=== PATIENT | female | born 1955 | race African-American/Black ===

== ENCOUNTER 2017-02-01 21:57 | Inpatient (IN) | payer MEDICAID ==
[~2017-02-01] VITALS: Ht 165.1 cm; Wt 59.4 kg
--- NOTE | 2017-02-01 21:57 | NUR ---
Patient BIBA to bed 5 at this time.
[2017-02-01] MEDS ORDERED: NACL 0.9% 1,000 ML IV ONE (22:05)
[2017-02-01 22:15] VITALS: BP 101/72
--- NOTE | 2017-02-01 22:25 | NUR ---
62Y F BIBA FOR SATS IN LOW 50'S AT HOSPICE. ACCU CK IN FIELD 129, PT PLACED ON NON-REBREATHER SATS 98%. PT IS ON HOSPICE CARE AND ON O2 AT HOME. PT IS AAOX2. BREATHING IS UNLABORED AND CLEAR. PT DENIES ANY PAIN AT THE MOMENT.
[2017-02-01 22:52] LABS: BASOPHILS # (AUTO) 0.1 K/uL (0.00-0.22); BASOPHILS % (AUTO) 0.9 % (0.0-2.0); EOSINOPHILS # (AUTO) 0.2 K/uL (0-0.4); EOSINOPHILS % (AUTO) 1.8 % (0.0-4.0); HEMATOCRIT 44.3 % (36-48); HEMOGLOBIN 13.2 g/dL (12.0-16.0); LYMPHOCYTES # (AUTO) 0.4 K/uL (2.5-16.5); MEAN CORPUSCULAR HEMOGLOBIN 28 pg (27-31); MEAN CORPUSCULAR HGB CONC 30 g/dL (33-37); MEAN CORPUSCULAR VOLUME 95 fL (80-94); MONOCYTES # (AUTO) 0.1 K/uL (0.8-1.0); MONOCYTES % (AUTO) 0.9 % (1.7-9.3); NEUTROPHILS # (AUTO) 9.5 K/uL (1.8-7.7); NEUTROPHILS % (AUTO) 92.3 % (42.2-75.2); PLATELET COUNT (AUTO) 208 K/uL (140-450); RED BLOOD CELL COUNT(AUTO) 4.66 MIL/uL (4.20-5.40); RED CELL DISTRIBUTION WIDTH 16.6 % (11.6-13.7); WHITE BLOOD COUNT (AUTO) 10.3 K/uL (4.8-10.8)
[2017-02-01] MEDS ORDERED: PIPERACILLIN/TAZOBACTAM 3.375 GM in DEXTROSE 5% 50 ML IV ONE (23:05)
[2017-02-01 23:07] LABS: APPEARANCE,URINE CLEAR (CLEAR); BILIRUBIN,URINE NEGATIVE (NEGATIVE); BLOOD, URINE NEGATIVE (NEGATIVE); COLOR,URINE YELLOW (YELLOW); LEUKOCYTE ESTERASE ,URINE NEGATIVE (NEGATIVE); NITRITE, URINE NEGATIVE (NEGATIVE); PROTEIN,URINE TRACE (NEGATIVE); UGLUCOSE NEGATIVE (NEGATIVE); UROBILINOGEN,URINE 0.2 EU/dL (0.2 - 1)
[2017-02-01 23:09] LABS: LYMPHOCYTES % (AUTO) 4.1 % (20.5-51.1)
[2017-02-01 23:13] LABS: ANION GAP 12.2 (8-16); CARBON DIOXIDE 30.5 mmol/L (21-32); POTASSIUM 4.7 mmol/L (3.5-5.1)
[2017-02-01 23:14] LABS: CALCIUM 8.4 mg/dL (8.5-10.1); CREATININE 3.4 mg/dL (0.6-1.3)
[2017-02-01 23:20] LABS: LACTIC ACID 1.2 mmol/L (0.4-2.0)
[2017-02-01 23:23] LABS: INR 1.1 (0.8-1.2); PARTIAL THROMBOPLASTIN TIME 21.8 secs (22-35.6); PROTHROMBIN TIME 11.6 secs (10.8-13.4)
[2017-02-01 23:24] LABS: ALBUMIN 2.8 g/dL (3.4-5.0); TOTAL BILIRUBIN 0.9 mg/dL (0.0-1.0)
[2017-02-01 23:33] LABS: BACTERIA,URINE FEW /HPF (None Seen); RBC,URINE 0-5 (RARE) /HPF (0-5); WBC,URINE 0-5 (RARE) /HPF (0-5)
[2017-02-01 23:34] LABS: HYALINE CASTS, URINE 0-3 /LPF (None Seen); MUCUS,URINE 2+ /LPF (None Seen)
[2017-02-01] MEDS ORDERED: PIPERACILLIN/TAZOBACTAM 3.375 GM VIAL IV ONE (23:39)
[2017-02-01] MEDS: NACL 0.9% 1,000 ML IV SCH (23:49)
[2017-02-01] MEDS ORDERED: MORPHINE SULFATE 4 MG/ML SYR IVP PRN (23:50)
[2017-02-01] MEDS ORDERED: ONDANSETRON 4 MG/2 ML VIAL IVP PRN (23:50)
[2017-02-01] MEDS ORDERED: DOCUSATE SODIUM 100 MG GELCAP PO PRN (23:50)
[2017-02-01] MEDS ORDERED: MORPHINE SULFATE 2 MG/ML SYR IVP PRN (23:50)
[2017-02-01] MEDS ORDERED: ACETAMINOPHEN 325 MG TAB PO PRN (23:50)
[2017-02-02] MEDS ORDERED: PIPERACILLIN/TAZOBACTAM 2.25 GM in DEXTROSE 5% 50 ML IV ONE (00:25)
--- NOTE | 2017-02-02 00:47 | NUR ---
Patient will be admitted to care of DR GOODMAN. Admited tO TELE 106A. Will go to room 106A. Belongings list completed. Report to JALEEL JACK .
[2017-02-02] MEDS ORDERED: ALBUTEROL SULFATE/IPRATROPIU 3 ML SOL IH PRN (01:00)
[2017-02-02 01:24] LABS: AMPHETAMINE, URINE NEGATIVE ng/ml (NEG <=1000); BARBITURATE, URINE NEGATIVE ng/ml (NEG <=200); BENZODIAZEPINE, URINE POSITIVE ng/mL (NEG <=200); CANNABINOID, URINE NEGATIVE ng/mL (NEG <=50); COCAINE, URINE POSITIVE ng/mL (NEG <=300); OPIATE, URINE NEGATIVE ng/mL (NEG <=2000); PHENCYCLIDINE SCREEN,URINE NEGATIVE ng/mL (NEG <=25)
[2017-02-02 01:28] LABS: BLOOD GAS HCO3 23.3 mmol/L; BLOOD GAS O2 SAT% 88.8 % (92.0-98.5); BLOOD GAS PCO2 63.9 mmHg (20-50); BLOOD GAS PO2 63.8 mmHg
[2017-02-02 01:30] VITALS: BP 92/59
[2017-02-02 01:30] LABS: CHOL/HDL RATIO 1.6 (1-4.5); MAGNESIUM 1.8 mg/dL (1.8-2.4); PHOSPHORUS 6.2 mg/dL (2.5-4.9)
--- NOTE | 2017-02-02 01:30 | NUR ---
PT ADMITTED TO UNIT FROM ED, PATIENT ABLE TO AMBULATE FROM GURNEY TO BED WITH STEADY GAIT, PT AAOX2 CONFUSED, ON O2 4L NC, PULSE OX NOT READING D/T PTS FINGERS COLD. PTS RESPIRATIONS FREQUENT WITH ACCESSORY MUSCLE USE. SKIN INTACT WITH BULGE NOTED ON PTS ABDOMEN. PT DENIES PAIN AT THIS TIME, ORIENTED PATIENT TO ROOM AND SURROUNDINGS, DISCUSSED PLAN OF CARE WITH PATIENT, PT VERBALIZED UNDERSTANDING, REINFORCEMENT NEEDED, CALL LIGHT WITHIN REACH. WILL CONTINUE TO MONITOR.
--- NOTE | 2017-02-02 01:30 | NUR ---
ABG DONE WITH NO INCIDENT. RESULTS GIVEN VERBALLY TO DR VAZQUEZ. GAVE PT SPUTUM CUB AND EXPLAINED TO PT. PT VERBALIZED UNDERSTANDING. IS DONE. WILL FOLLOW WITH ORDERS.
[2017-02-02 01:31] LABS: FREE T4 (FREE THYROXINE) 1.03 ng/dL (0.76-1.46); THYROID STIMULATING HORMONE 1.07 uIU/mL (0.34-3.74)
--- NOTE | 2017-02-02 01:35 | NUR ---
DR VAZQUEZ AT BEDSIDE
--- NOTE | 2017-02-02 01:50 | NUR ---
PLACED PT ON BIPAP PER DR ORDERS. SETTINGS 10/5,12,100%. MASK SIZE IS SMALL. SKIN IS INTACT. APPLIED FACE MASK GEL FOR SKIN PROTECTION. BIPAP IS PLUGGED INTO RED OUTLET, ALARMS ARE WORKING AND AUDIBLE. PT IS AWAKE AND ALERT WITH CLEAR AND DIMINISHED BS. GUERO MEYER AT BEDSIDE. WILL CONTINUE TO MONITOR.
[2017-02-02] MEDS ORDERED: PIPERACILLIN/TAZOBACTAM 2.25 GM VIAL IV ONE (01:51)
--- NOTE | 2017-02-02 03:47 | NUR ---
PT GOT AGITATED FOR A MOMENT AND PULLED OFF BIPAP MASK AND THREW IT ON THE GROUND. PT STATING, "I DONT WANT TO WEAR THAT THING AND YOU CANT MAKE ME" EXPLAINED TO THE PT THE IMPORTANCE OF HAVING IT ON PT STATED SHE DID NOT WANT IT, PT STATED " YOU CAN TELL THE DOCTORS I DONT WANT TO WEAR IT". PT WAS PUT ON NASAL CANNULA 4L O2 SATS FLUCTUATING BETWEEN 80-91, SPOKE WITH MD WOLFE AND DR VAZQUEZ. CAME TO TALK TO PATIENT AND EXPLAINED AGAIN THE IMPORTANCE OF HAVING IT ON AND IF SHE DIDNT THE ALTERNATIVE MEASURES THAT WOULD HAVE TO BE TAKEN. PT AGREED TO HAVE IT ON, REAPPLIED THE BIPAP, O2 SATS AT 91%, PT RESTING IN BED, CALL LIGHT WITHIN REACH. WILL CONTINUE TO MONITOR.
[2017-02-02 04:00] VITALS: BP 92/63
--- NOTE | 2017-02-02 04:35 | NUR ---
PT RESTING IN BED, NO SOB OR SIGN OF DISTRESS, CALL LIGHT WITHIN REACH. WILL CONTINUE TO MONITOR.
[2017-02-02] MEDS: LORazepam 1 MG TAB PO SCH ×3 (05:00→20:46)
--- NOTE | 2017-02-02 05:40 | NUR ---
ABG was done and results were read to Dr. Gagnon and the only change was to reduce fio2 from 100% to %60. Patient spo2 99 heart rate 88 patient stable no resp distress
[2017-02-02 05:52] LABS: BLOOD GAS HCO3 22.7 mmol/L; BLOOD GAS PCO2 72.7 mmHg (20-50); BLOOD GAS PH 7.112 (7.35-7.45); BLOOD GAS PO2 221.6 mmHg
[2017-02-02 05:53] LABS: BLOOD GAS BASE EXCESS -7.8 mmol/L (-2.0-2.0)
[2017-02-02 05:54] LABS: BLOOD GAS O2 SAT% 99.5 % (92.0-98.5)
--- NOTE | 2017-02-02 06:23 | NUR ---
PT WANTING TO REMOVE BIPAP EXPLAINED TO PATIENT THE NEED AND IMPORTANCE OF IT. PT STATED " ILL TAKE MY CHANCES" PT THEN WANTED TO EAT JELLO, REMOVED BIPAP, APPLIED NC AT 4L, O2 SATS AT 92%, WILL CONTINUE TO MONITOR.
--- NOTE | 2017-02-02 06:32 | NUR ---
PT REFUSING TO PUT BIPAP BACK ON, EDUCATED PATIENT ON IMPORTANCE, PT STATED " NO I DONT LIKE THAT THING, I DONT WANT IT ON" O2 SATS ON 4L NC AT 92%, WILL CONTINUE TO MONITOR
--- NOTE | 2017-02-02 07:10 | NUR ---
PER JALEEL/RN NOCS PATIENT REFUSING TO USE BIPAP TO MASK PATIENT REMOVED X2 DR. VAZQUEZ AND DR. WOLFE AWARE MD'S SPOKE TO PATIENT AND EXPLAINED BENEFITS OF USE WITH POSSIBILITY OF INTUBATION PATIENT ON SUPPLEMENTAL OXYGEN AI 4 LPM VIA NC SATURATION 95%
[2017-02-02 07:11] LABS: ANION GAP 12.9 (8-16); CALCIUM 7.3 mg/dL (8.5-10.1); CARBON DIOXIDE 26.3 mmol/L (21-32); POTASSIUM 4.2 mmol/L (3.5-5.1)
[2017-02-02 07:15] LABS: MAGNESIUM 1.6 mg/dL (1.8-2.4)
--- NOTE | 2017-02-02 07:27 | NUR ---
RECEIVED REPORT FROM NIGHT NURSE, PT OS AAOX2/3, PT ON O2 4L VIA NC, IV TO LEFT FA 20 G INFUSING WELL, SKIN INTACT, INITIAL ASSESSMENT COMPLETED, REVIEWED PLAN OF CARE WITH PT, REINFORCEMENT NEEDED, ALL SAFETY PRECAUTIONS MET. CALL LIGHT WITHIN REACH. WILL CONTINUE TO MONITOR.
--- NOTE | 2017-02-02 07:27 | NUR ---
ENDORSED PATIENT TO DAY RN AT BEDSIDE, PATIENT IN STABLE CONDITION
[2017-02-02 08:00] VITALS: BP 90/57
[2017-02-02] MEDS: NACL 0.9% 1,000 ML IV SCH ×2 (08:02→17:09)
[2017-02-02] MEDS: CALCIUM ACETATE 667 MG TAB PO SCH (08:30)
[2017-02-02] MEDS: LACTOBACILLUS RHAMNOSUS GG 1 EACH CAP PO SCH (08:30)
--- NOTE | 2017-02-02 08:35 | NUR ---
DUE MEDICATIONS GIVEN, PT TOLERATED WELL. PT CURRENTLY ON O2 4L VIA NC PULSE OX 92%. ALL NEEDS MET. WILL CONTINUE TO MONITOR.
[2017-02-02] MEDS ORDERED: FOLIC ACID 1 MG TAB PO SCH (09:00)
[2017-02-02] MEDS ORDERED: THIAMINE 100 MG TAB PO SCH (09:00)
[2017-02-02] MEDS ORDERED: MULTIVITAMIN 1 TAB PO SCH (09:00)
[2017-02-02] MEDS ORDERED: CLINICAL MONITORING MC PRN (09:50)
--- NOTE | 2017-02-02 09:53 | NUR ---
PATIENT HAS BEEN SCREENED AND CATEGORIZED MODERATE NUTRITION RISK. PATIENT WILL BE SEEN WITHIN 3-5 DAYS OF ADMISSION. 02/04/17-02/06/[address] Addendum: 02/02/17 at [address] ERROR, PLEASE DISREGARD
--- NOTE | 2017-02-02 10:18 | NUR ---
PATIENT HAS BEEN SCREENED AND CATEGORIZED HIGH NUTRITION RISK. PATIENT WILL BE SEEN WITHIN 1-2 DAYS OF ADMISSION. 02/02/17-02/03/[address]
--- NOTE | 2017-02-02 11:25 | NUR ---
PT CURRENTLY SLEEPING, NO S/S OF RESPIRATORY DISTRESS NOTED, PT ON O2 4L VIA NC. CALL LIGHT WITHIN REACH. WILL CONTINUE TO MONITOR.
[2017-02-02] MEDS ORDERED: TEMA15CA11 PO (11:32)
[2017-02-02] MEDS ORDERED: [UNRECOGNIZED DRUG - CODE] PO (11:32)
[2017-02-02] MEDS ORDERED: AMLO-27 PO (11:32)
[2017-02-02] MEDS ORDERED: DOCU-67 PO (11:32)
[2017-02-02] MEDS ORDERED: FURO20TA8 PO (11:32)
[2017-02-02] MEDS ORDERED: LEVO500T22 PO (11:32)
[2017-02-02] MEDS ORDERED: LORA-476 PO (11:32)
[2017-02-02] MEDS ORDERED: ASPI81CT80 PO (11:32)
[2017-02-02] MEDS ORDERED: CARV25TA PO (11:32)
[2017-02-02] MEDS ORDERED: ATOR40TA PO (11:32)
[2017-02-02] MEDS ORDERED: ACET-9494 PO (11:32)
[2017-02-02] MEDS ORDERED: IPRA3AMP IH (11:32)
[2017-02-02] MEDS ORDERED: TEMAZEPAM 15 MG CAP PO PRN (11:35)
[2017-02-02] MEDS: FUROSEMIDE 20 MG/2 ML VIAL IVP SCH (11:35)
[2017-02-02 12:00] VITALS: BP 96/70
[2017-02-02] MEDS ORDERED: amLODIPine 5 MG TAB PO SCH (12:00)
[2017-02-02] MEDS ORDERED: ASPIRIN 81 MG TAB.CHEW PO SCH (12:00)
[2017-02-02] MEDS ORDERED: VIT-B COMP/VIT-C/FOLIC ACID 1 TAB PO SCH (12:00)
--- NOTE | 2017-02-02 12:17 | NUR ---
ENDORSED PLAN OF CARE TO ALEXX JACK
--- NOTE | 2017-02-02 12:17 | NUR ---
02/02/17 RD INITIAL ASSESSMENT COMPLETED PLEASE REFER TO NUTRITION ASSESSMENT UNDER CARE ACTIVITY FOR ESTIMATED NUTRITIONAL NEEDS. 1. RECOMMEND SWITCH FROM 2GM SODIUM DIET TO RENAL 60 G PROTEIN DIET 2. CONSIDER NEPHROVITE 3. D/C MVI, THIAMINE, AND FOLIC ACID SUPPLEMENT 4. RD TO FOLLOW-UP 2-3 DAYS; HIGH RISK JAROCHO SHAIKH, RD
[2017-02-02] MEDS ORDERED: MAG SULF 2000 MG/WATER PREMIX 50 ML IV SCH (12:30)
[2017-02-02] MEDS ORDERED: CALCIUM ACETATE 667 MG TAB PO SCH (12:30)
[2017-02-02] MEDS: PIPER/TAZO 2.25GM/D5W PREMIX 50 ML IV SCH ×2 (12:48→20:45)
[2017-02-02] MEDS ORDERED: LORazepam 1 MG TAB PO SCH (13:00)
[2017-02-02] MEDS: ALBUTEROL SULFATE/IPRATROPIU 3 ML SOL IH SCH ×2 (13:45→19:35)
--- NOTE | 2017-02-02 13:45 | NUR ---
AWAKE AND ALERT RESPONSIVE TO DIORAMIST VERBAL COMMANDS SUPPLEMENTAL OXYGEN USE AT 4 LPM VIA NC SATURATION 97% POST HHN THERAPY TITRATED FIO2 TO 3 LPM DIORAMIST TO MONITOR ALEXX/RN NOTIFIED BIPAP VISION REMAINS AT BEDSIDE
[2017-02-02 16:00] VITALS: BP 93/65
--- NOTE | 2017-02-02 16:38 | NUR ---
REVIEWED [facility] SAMPLE REPORT WITH DR. OSCAR KERN (RES) NEW ORDERS: INCREASE FIO2 TO 4LPM (36%) VIA NC Addendum: 02/02/17 at 1711 by Fred Castillo RT SELINA NOTIFIED OF FIO2 INCREASE TO 4 LPM (36%) VIA NC
[2017-02-02 16:39] LABS: BLOOD GAS PH 7.224 (7.35-7.45)
[2017-02-02 16:40] LABS: BLOOD GAS BASE EXCESS -2.7 mmol/L (-2.0-2.0); BLOOD GAS HCO3 25.9 mmol/L; BLOOD GAS O2 SAT% 92.4 % (92.0-98.5); BLOOD GAS PCO2 64.1 mmHg (20-50); BLOOD GAS PO2 72.1 mmHg
--- NOTE | 2017-02-02 19:13 | NUR ---
PATIENT REPORT GIVEN AT BEDSIDE. PATIENT ENDORSED IN STABLE CONDITION
--- NOTE | 2017-02-02 19:30 | NUR ---
RECEIVED REPORT FROM DAY RN AT BEDSIDE, PATIENT IS AAOX2 ON O2 2L NC, NO SOB OR SIGN OF DISTRESS AT THIS TIME, IV TO LEFT FA PATENT AND INTACT, SKIN INTACT WITH BULDGE NOTED ON PATIENT'S ABDOMEN, PT STATES IS A HERNIA SHE HAS HAD. PT DENIES PAIN AT THIS TIME, DISCUSSED PLAN OF CARE WITH PATIENT, PT VERBALIZED UNDERSTANDING, CALL LIGHT WITHIN REACH. WILL CONTINUE TO MONITOR
--- NOTE | 2017-02-02 19:46 | NUR ---
PATIENT DOES NOT WANT BIPAP, NO SIGNS OF RESP. DISTRESS NOTED,RR 18, HR 63, SAO2 97% ON 4LPM VIA NC, BS-COURSE AND DIMINISHED ON RUL. HHN TX GIVEN ORDERED
[2017-02-02 20:00] VITALS: BP 101/64
[2017-02-02] MEDS: ATORVASTATIN 20 MG TAB PO SCH (20:45)
[2017-02-02] MEDS: CARVEDILOL 12.5 MG TAB PO SCH (20:46)
--- NOTE | 2017-02-02 20:50 | NUR ---
PM MEDS ADMINISTERED, PT TOLERATED WELL, PT RESTING IN BED, ON 4L O2 NC, O2 SATS 95%, WILL CONTINUE TO MONITOR
--- NOTE | 2017-02-02 21:10 | NUR ---
RADIOLOGY CALLED REGARDING ORDER FOR ABDOMINAL US, PT HAS NOT BEEN NPO, PER RADIOLOGY KEEP PT NPO FOR REST OF THE NIGHT AND US WILL BE DONE AT 0630 ON 02/03/17.
[2017-02-03] VITALS: BP 103/75
[2017-02-03] MEDS: ALBUTEROL SULFATE/IPRATROPIU 3 ML SOL IH SCH ×4 (00:11→19:03)
--- NOTE | 2017-02-03 00:20 | NUR ---
VITAL SIGNS STABLE NO SOB OR SIGN OF DISTRESS, CALL LIGHT WITHIN REACH. WILL CONTINUE TO MONITOR.
--- NOTE | 2017-02-03 02:00 | NUR ---
PT SLEEPING, NO SOB OR SIGN OF DISTRESS AT THIS TIME, PT ON O2 4L NC, WILL CONTINUE TO MONITOR
[2017-02-03] MEDS: NACL 0.9% 1,000 ML IV SCH ×2 (03:09→22:12)
[2017-02-03 04:00] VITALS: BP 106/59
--- NOTE | 2017-02-03 04:10 | NUR ---
VITAL SIGNS STABLE, NO SOB OR SIGN OF DISTRESS, CALL LIGHT WITHIN REACH. WILL CONTINUE TO MONITOR.
[2017-02-03] MEDS: PIPER/TAZO 2.25GM/D5W PREMIX 50 ML IV SCH ×3 (04:39→20:56)
[2017-02-03] MEDS: LORazepam 1 MG TAB PO SCH ×3 (05:49→20:56)
--- NOTE | 2017-02-03 06:27 | NUR ---
PT REFUSED CHEST XRAY
[2017-02-03 06:28] LABS: BASOPHILS # (AUTO) 0.3 K/uL (0.00-0.22); BASOPHILS % (AUTO) 3.5 % (0.0-2.0); EOSINOPHILS # (AUTO) 0.3 K/uL (0-0.4); EOSINOPHILS % (AUTO) 3.5 % (0.0-4.0); HEMATOCRIT 37.1 % (36-48); HEMOGLOBIN 11.4 g/dL (12.0-16.0); LYMPHOCYTES # (AUTO) 1.6 K/uL (2.5-16.5); LYMPHOCYTES % (AUTO) 20.1 % (20.5-51.1); MEAN CORPUSCULAR HEMOGLOBIN 29 pg (27-31); MEAN CORPUSCULAR HGB CONC 31 g/dL (33-37); MEAN CORPUSCULAR VOLUME 94 fL (80-94); MONOCYTES # (AUTO) 0.3 K/uL (0.8-1.0); MONOCYTES % (AUTO) 3.8 % (1.7-9.3); NEUTROPHILS # (AUTO) 5.4 K/uL (1.8-7.7); NEUTROPHILS % (AUTO) 69.1 % (42.2-75.2); PLATELET COUNT (AUTO) 147 K/uL (140-450); RED BLOOD CELL COUNT(AUTO) 3.94 MIL/uL (4.20-5.40); RED CELL DISTRIBUTION WIDTH 15.8 % (11.6-13.7); WHITE BLOOD COUNT (AUTO) 7.9 K/uL (4.8-10.8)
[2017-02-03 06:32] LABS: ANION GAP 10.9 (8-16); CALCIUM 7.4 mg/dL (8.5-10.1); CARBON DIOXIDE 28.3 mmol/L (21-32); CREATININE 3.5 mg/dL (0.6-1.3); POTASSIUM 4.2 mmol/L (3.5-5.1)
[2017-02-03 06:43] LABS: MAGNESIUM 2.2 mg/dL (1.8-2.4); PHOSPHORUS 3.9 mg/dL (2.5-4.9)
--- NOTE | 2017-02-03 07:03 | NUR ---
HHN TX GIVEN. PT DOESN'T WANT BIPAP. SPO2 ON 3 L NC IS 99%. NO SOB OR DISTRESS NOTED. WILL CONTINUE TO MONITOR.
--- NOTE | 2017-02-03 07:30 | NUR ---
ENDORSED PATIENT TO DAY RN AT BEDSIDE, PATIENT IN STABLE CONDITION
--- NOTE | 2017-02-03 07:32 | NUR ---
RECEIVED PATIENT REPORT AT BEDSIDE FROM NIGHT NURSE. PATIENT IS AAOX3 AND SHOWS NO S/S OF DISTRESS ON O2 4LPM VIA NASAL CANNULA. NOTED ABD BULGE THAT PATIENT STATES "IT'S A HERNIA". PATIENT IS NPO EXCEPT MEDS FOR ULTRASOUND OF THE ABD. PATIENT IS AWARE. SKIN IS INTACT OTHERWISE. IV NOTED ON THE L FA WITH IVF'S INFUSING WELL. ON TELE MONITOR. PATIENT DENIES PAIN. PATIENT AWARE OF POC FOR TODAY; HOWEVER, SHE NEEDS REINFORCEMENT. BSC AT BEDSIDE. CALL LIGHT WITHIN REACH AND BED IS LOWERED. WILL CONTINUE TO MONITOR.
[2017-02-03 08:00] VITALS: BP 116/73
--- NOTE | 2017-02-03 08:15 | NUR ---
PATIENT BEING SEEN BY CONCRETE HOPPER OPERATOR.
[2017-02-03] MEDS: CALCIUM ACETATE 667 MG TAB PO SCH (08:34)
[2017-02-03] MEDS: ASPIRIN 81 MG TAB.CHEW PO SCH (08:34)
[2017-02-03] MEDS: VIT-B COMP/VIT-C/FOLIC ACID 1 TAB PO SCH (08:34)
[2017-02-03] MEDS: FUROSEMIDE 20 MG/2 ML VIAL IVP SCH (08:34)
[2017-02-03] MEDS: LACTOBACILLUS RHAMNOSUS GG 1 EACH CAP PO SCH (08:34)
[2017-02-03] MEDS: CARVEDILOL 12.5 MG TAB PO SCH ×2 (08:35→20:56)
--- NOTE | 2017-02-03 08:35 | NUR ---
ADMINISTERED SCHEDULED MEDICATIONS. PATIENT DENIES PAIN. THE BED IS LOWERED WITH CALL LIGHT WITHIN REACH. ALL NEEDS MET.
--- NOTE | 2017-02-03 08:40 | NUR ---
PATIENT BEING SEEN BY XRAY.
[2017-02-03] MEDS: amLODIPine 5 MG TAB PO SCH (09:00)
--- NOTE | 2017-02-03 10:30 | NUR ---
PATIENT IS RESTING IN BED AND SHOWS NO S/S OF DISTRESS ON O2 4LPM VIA NASAL CANNULA. THE BED IS LOWERED WITH CALL LIGHT WITHIN REACH.
--- NOTE | 2017-02-03 10:33 | NUR ---
SS NOTE: I SPOKE WITH PT'S SON, NEFTALI AND HE CONFIRMED THAT PT LIVES AT HOME WITH HIM BUT HE IS HAVING DIFFICULTY CARING FOR PT AT HOME. HE ALSO STATED THAT HE WOULD LIKE PT TO GO TO SNF FOR HOSPICE SERVICES.
--- NOTE | 2017-02-03 11:00 | NUR ---
PATIENT ASSISTED TO BSC. PATIENT VOIDED AND HAD A MODERATE SOFT LIGHT BROWN BM.
[2017-02-03 12:00] VITALS: BP 96/57
--- NOTE | 2017-02-03 12:10 | NUR ---
PATIENT IS SLEEPING AND SHOWS NO S/S OF DISTRESS ON O2 4LPM VIA NASAL CANNULA
--- NOTE | 2017-02-03 12:49 | NUR ---
RECEIVED CRITICAL RADIOLOGY REPORT FROM MAK COLEMAN OF US ABDOMEN RESULT AND NOTIFIED DR SAPP
--- NOTE | 2017-02-03 12:55 | NUR ---
PT REFUSED HHN TX. WILL CONTINUE TO MONITOR.
--- NOTE | 2017-02-03 13:34 | NUR ---
CLINICAL REVIEW DONE.
--- NOTE | 2017-02-03 13:58 | NUR ---
ADMINISTERED SCHEDULED ABX. DID NOT GIVE SCHEDULED ATIVAN DUE TO LOW BLOOD PRESSURE. BED IS LOWERED WITH CALL LIGHT WITHIN REACH. WILL CONTINUE TO MONITOR.
--- NOTE | 2017-02-03 14:30 | NUR ---
PATIENT WAS ASSISTED TO BSC AND VOIDED.
[2017-02-03 16:00] VITALS: BP 103/70
--- NOTE | 2017-02-03 16:00 | NUR ---
PATIENT IS RESTING WATCHING TV AND SHOWS NO S/S OF DISTRESS ON ROOM AIR WILL CONTINUE TO MONITOR. Addendum: 02/03/17 at 1836 by Elizabeth Aguirre RN PATIENT ON O2 4 LPM VIA NC NOT ON ROOM AIR.
--- NOTE | 2017-02-03 17:20 | NUR ---
PATIENT HAS GOOD APPETITE AND TOLERATES FOOD WELL. PATIENT DENIES PAIN. BED IS LOWERED WITH CALL LIGHT WITHIN REACH.
[2017-02-03 18:43] LABS: ANION GAP 8.5 (8-16); CALCIUM 7.3 mg/dL (8.5-10.1); CARBON DIOXIDE 30.1 mmol/L (21-32); CREATININE 3.5 mg/dL (0.6-1.3); POTASSIUM 3.6 mmol/L (3.5-5.1)
--- NOTE | 2017-02-03 19:05 | NUR ---
PATIENT IS AAOX2 AND SHOWS NO S/S OF DISTRESS ON O2 4 LPM VIA NC. RT ARRIVED TO ROOM AND WILL BE ADMINISTERING BREATHING TX'S. THE BED IS LOWERED WITH CALL LIGHT WITHIN REACH. GAVE REPORT TO NIGHT NURSE AT BEDSIDE. PATIENT ENDORSED IN STABLE CONDITION.
--- NOTE | 2017-02-03 19:06 | NUR ---
RECEIVED REPORT FROM DAY RN FOR CONTINUITY OF CARE. PATIENT IS ALERT AND ORIENTED X3, DISCUSSED PLAN OF CARE WITH PATIENT, VERBALIZED UNDERSTANDING. SHIFT ASSESSMENT DONE, VITAL SIGNS STABLE AT THIS TIME. NO S/S OF RESPIRATORY DISTRESS NOTED ON 4L NC. PATIENT DENIES PAIN. IV PATENT AND INFUSING FLUIDS WELL. PATIENT REFUSED ABDOMINAL ASSESSMENT STATES, "NO I DON'T WANT TO SHOW YOU." SAFETY PRECAUTIONS ENFORCED AND CALL LIGHT PLACED WITHIN REACH. WILL CONTINUE TO MONITOR.
[2017-02-03 20:00] VITALS: BP 117/77
[2017-02-03] MEDS: ATORVASTATIN 20 MG TAB PO SCH (20:55)
--- NOTE | 2017-02-03 20:56 | NUR ---
DUE MEDICATIONS ADMINISTERED, TOLERATED WELL. RECHECKED BP AND HELD BP MEDICATION. SAFETY PRECAUTIONS ENFORCED. PATIENT NOW RESTING IN BED NO S/S OF DISTRESS OR DISCOMFORT NOTED. CALL LIGHT WITHIN REACH.
--- NOTE | 2017-02-03 22:15 | NUR ---
PATIENT SLEEPING AT THIS TIME, REPLACED IVF IV PATENT AND INFUSING WELL. CALL LIGHT WITHIN REACH.
--- NOTE | 2017-02-03 22:52 | NUR ---
ABG attempted by RT around 1900 hours. RT attempted three times and was unsuccessful. Patient refused to have anyone else (RT) try to get ABG. Patient stable at this time on 4lNC spo2 [address] richards.
--- NOTE | 2017-02-03 23:43 | NUR ---
PATIENT REFUSED VITAL SIGNS, STATES "TAKE THEM IN THE MORNING I'M FINE." EDUCATED PATIENT ON IMPORTANCE OF MONITORING VS, STILL REFUSED. NO S/S OF DISTRESS OR DISCOMFORT NOTED. CALL LIGHT WITHIN REACH. WILL CONTINUE TO MONITOR.
[2017-02-04] MEDS: ALBUTEROL SULFATE/IPRATROPIU 3 ML SOL IH SCH ×4 (01:00→18:44)
--- NOTE | 2017-02-04 02:05 | NUR ---
PATIENT SLEEPING, EASILY AWAKENS, NO S/S OF DISTRESS OR DISCOMFORT NOTED. CALL LIGHT WITHIN REACH.
[2017-02-04 04:00] VITALS: BP 117/71
[2017-02-04] MEDS: LORazepam 1 MG TAB PO SCH ×3 (04:41→20:19)
[2017-02-04] MEDS: PIPER/TAZO 2.25GM/D5W PREMIX 50 ML IV SCH ×3 (04:41→20:18)
--- NOTE | 2017-02-04 04:41 | NUR ---
VITAL SIGNS STABLE, DUE MEDICATIONS ADMINISTERED, TOLERATED WELL. CALL LIGHT PLACED WITHIN REACH, WILL CONTINUE TO MONITOR.
[2017-02-04 05:58] LABS: BASOPHILS # (AUTO) 0.2 K/uL (0.00-0.22); EOSINOPHILS # (AUTO) 0.2 K/uL (0-0.4); EOSINOPHILS % (AUTO) 2.8 % (0.0-4.0); HEMATOCRIT 39.2 % (36-48); HEMOGLOBIN 12.3 g/dL (12.0-16.0); LYMPHOCYTES % (AUTO) 12.9 % (20.5-51.1); MEAN CORPUSCULAR HEMOGLOBIN 29 pg (27-31); MEAN CORPUSCULAR HGB CONC 31 g/dL (33-37); MEAN CORPUSCULAR VOLUME 94 fL (80-94); MONOCYTES # (AUTO) 0.6 K/uL (0.8-1.0); MONOCYTES % (AUTO) 7.5 % (1.7-9.3); NEUTROPHILS # (AUTO) 6.1 K/uL (1.8-7.7); NEUTROPHILS % (AUTO) 73.8 % (42.2-75.2); PLATELET COUNT (AUTO) 144 K/uL (140-450); RED BLOOD CELL COUNT(AUTO) 4.17 MIL/uL (4.20-5.40); RED CELL DISTRIBUTION WIDTH 15.8 % (11.6-13.7)
--- NOTE | 2017-02-04 06:07 | NUR ---
PATIENT RESTING IN BED, NO S/S OF DISTRESS OR DISCOMFORT NOTED. CALL LIGHT WITHIN REACH.
[2017-02-04 06:34] LABS: ANION GAP 12.3 (8-16); CALCIUM 7.9 mg/dL (8.5-10.1); CARBON DIOXIDE 27.1 mmol/L (21-32); CREATININE 3.6 mg/dL (0.6-1.3); POTASSIUM 3.4 mmol/L (3.5-5.1)
[2017-02-04] MEDS ORDERED: POTASSIUM CHLORIDE 10 MEQ TABER PO SCH (07:00)
[2017-02-04 07:01] LABS: WHITE BLOOD COUNT (AUTO) 8.1 K/uL (4.8-10.8)
--- NOTE | 2017-02-04 07:16 | NUR ---
PT CURRENTLY ON RA WITH SPO2 93%. HHN TX GIVEN. BIPAP NOT NEEDED AT THIS TIME. NO SOB OR DISTRESS NOTED. WILL TRY ABG AFTER HHN TX. WILL CONTINUE TO MONITOR.
--- NOTE | 2017-02-04 07:17 | NUR ---
ENDORSED PATIENT TO DAY RN FOR CONTINUITY OF CARE, PATIENT IS IN STABLE CONDITION.
--- NOTE | 2017-02-04 07:30 | NUR ---
RECEIVED PT IN BED. AWAKE. ALERT ORIENTED X 3. NO SOB NOTED. PT WITH RT ON ROOM AIR SATING AT 100%. DENIES ANY PAIN OR DISCOMFORT AT THIS TIME. POSITIVE BOWEL SOUNDS NOTED ON FOUR QUADRANTS. PT AMBULATORY WITH ASSIST. SAFETY PRECAUTION IN PLACE. CALL LIGHT WITHIN REACH.
[2017-02-04 08:00] VITALS: BP 136/87
[2017-02-04] MEDS: CARVEDILOL 12.5 MG TAB PO SCH ×2 (08:20→20:19)
[2017-02-04] MEDS: LACTOBACILLUS RHAMNOSUS GG 1 EACH CAP PO SCH (08:21)
[2017-02-04] MEDS: VIT-B COMP/VIT-C/FOLIC ACID 1 TAB PO SCH (08:21)
[2017-02-04] MEDS: amLODIPine 5 MG TAB PO SCH (08:21)
[2017-02-04] MEDS: ASPIRIN 81 MG TAB.CHEW PO SCH (08:21)
[2017-02-04] MEDS: CALCIUM ACETATE 667 MG TAB PO SCH (08:21)
--- NOTE | 2017-02-04 09:00 | NUR ---
PT ACCIDENTALLY PULLED OUT HER IV. CANNULA INTACT. REINSERTED, NEW IV LINE PATENT, FLUSHING WELL, NO SIGNS OF INFILTRATION NOTED.
--- NOTE | 2017-02-04 09:17 | NUR ---
TRIED ABG ON PT BUT WITH NO SUCCESS. ASKED PT TO LET OTHER RT TRY AND SHE REFUSED. MD MONTGOMERY NOTIFIED.
[2017-02-04 09:19] VITALS: BP 115/74
[2017-02-04] MEDS: FUROSEMIDE 20 MG/2 ML VIAL IVP SCH (09:21)
[2017-02-04 09:47] LABS: BLOOD GAS BASE EXCESS 0.4 mmol/L (-2.0-2.0); BLOOD GAS HCO3 25.3 mmol/L; BLOOD GAS O2 SAT% 93.6 % (92.0-98.5); BLOOD GAS PCO2 42.1 mmHg (20-50); BLOOD GAS PH 7.397 (7.35-7.45); BLOOD GAS PO2 68.3 mmHg
--- NOTE | 2017-02-04 11:32 | NUR ---
PT AWAKE AT THIS TIME. COOPERATIVE IN TAKING HER VITAL SIGNS.DENIES ANY PAIN OR DISCOMFORT AT THIS TIME.
[2017-02-04 12:00] VITALS: BP 117/84
[2017-02-04 16:00] VITALS: BP 121/74
--- NOTE | 2017-02-04 16:11 | NUR ---
02/04/17 RD FOLLOW UP COMPLETED. PLEASE REFER TO NUTRITION PROGRESS NOTE UNDER CARE ACTIVITY FOR ESTIMATED NUTRITIONAL NEEDS. RD RECOMMENDATIONS: 1- RECOMMEND CONTINUE CURRENT DIET RENAL 60G CCHO DIET (PT NOT DIABETIC BUT OK SINCE BGLS ARE VARYING BETWEEN NORMAL AND SLIGHTLY ELEVATED) 2- F/U 3-5 DAYS; MODERATE RISK KARMA CRAIG MBA, RD
--- NOTE | 2017-02-04 19:15 | NUR ---
PT KEPT CLEAN DRY AND COMFORTABLE, NEEDS ATTENDED, PT ENDORSED TO NEXT SHIFT ON STABLE CONDITION, FOR CONTINUITY OF CARE.
--- NOTE | 2017-02-04 19:30 | NUR ---
RECEIVED REPORT FROM DAY RN AT BEDSIDE, PATIENT IS AAO X3 ON O2 AT 4L VIA NC, NO SOB OR SIGN OF DISTRESS, IV IS PATENT AND INTACT, SKIN INTACT WITH ABDOMINAL HERNIA NOTED TO ABDOMEN. PT DENIES PAIN AT THIS TIME, DISCUSSED PLAN OF CARE WITH PATIENT, PT VERBALIZED UNDERSTANDING, CALL LIGHT WITHIN REACH. WILL CONTINUE TO MONITOR.
[2017-02-04 20:00] VITALS: BP 100/65
[2017-02-04] MEDS: ATORVASTATIN 20 MG TAB PO SCH (20:18)
--- NOTE | 2017-02-04 20:28 | NUR ---
PM MEDS ADMINISTERED, PATIENT TOLERATED WELL, CALL LIGHT WITHIN REACH. WILL CONTINUE TO MONITOR
--- NOTE | 2017-02-04 22:30 | NUR ---
PT SLEEPING, NO SOB OR SIGN OF DISTRESS, CALL LIGHT WITHIN REACH. WILL CONTINUE TO MONITOR.
--- NOTE | 2017-02-05 00:05 | NUR ---
PT REFUSED VITAL SIGNS, PT RESTING IN BED, NO SIGN OF DISTRESS, WILL CONTINUE TO MONITOR.
[2017-02-05] MEDS: NACL 0.9% 1,000 ML IV SCH ×2 (00:18→23:19)
[2017-02-05] MEDS: ALBUTEROL SULFATE/IPRATROPIU 3 ML SOL IH SCH ×4 (01:10→19:12)
--- NOTE | 2017-02-05 02:30 | NUR ---
PT SLEEPING, NO SIGN OF DISTRESS, CALL LIGHT WITHIN REACH. WILL CONTINUE TO MONITOR.
[2017-02-05 04:00] VITALS: BP 121/77
--- NOTE | 2017-02-05 04:30 | NUR ---
PT SLEEPING, VITAL SIGNS STABLE, NO SOB OR SIGN OF DISTRESS, CALL LIGHT WITHIN REACH. WILL CONTINUE TO MONITOR
[2017-02-05] MEDS: PIPER/TAZO 2.25GM/D5W PREMIX 50 ML IV SCH ×3 (05:24→21:06)
[2017-02-05] MEDS: LORazepam 1 MG TAB PO SCH ×3 (05:24→21:06)
--- NOTE | 2017-02-05 07:21 | NUR ---
ENDORSED PATIENT TO DAY RN AT BEDSIDE, PATIENT IN STABLE CONDITION
--- NOTE | 2017-02-05 07:22 | NUR ---
RECEIVED PT IN BED. ASLEEP. AROUSABLE TO VOICE. ALERT ORIENTEDX4. NO SOB NOTED, ON 02 AT 4LPM NC. DENIES ANY PAIN OR DISCOMFORT AT THIS TIME. POSITIVE BOWEL SOUNDS NOTED ON FOUR QUADRANTS. PT ON BEDREST WITH BEDSIDE COMMODE. DENIES ANY PROBLEM WITH BOWEL OR BLADDER ELIMINATION AT THIS TIME. SAFETY PRECAUTION IN PLACE CALL LIGHT WITHIN REACH.
[2017-02-05 07:49] LABS: ANION GAP 8.5 (8-16); CALCIUM 7.8 mg/dL (8.5-10.1); CARBON DIOXIDE 30.2 mmol/L (21-32); CREATININE 3.8 mg/dL (0.6-1.3); POTASSIUM 3.7 mmol/L (3.5-5.1)
[2017-02-05 08:00] VITALS: BP 111/71
[2017-02-05] MEDS: CALCIUM ACETATE 667 MG TAB PO SCH (09:22)
[2017-02-05] MEDS: VIT-B COMP/VIT-C/FOLIC ACID 1 TAB PO SCH (09:22)
[2017-02-05] MEDS: ASPIRIN 81 MG TAB.CHEW PO SCH (09:22)
[2017-02-05] MEDS: LACTOBACILLUS RHAMNOSUS GG 1 EACH CAP PO SCH (09:23)
[2017-02-05] MEDS: FUROSEMIDE 20 MG/2 ML VIAL IVP SCH (09:23)
[2017-02-05] MEDS: LORazepam 2 MG/ML VIAL IVP PRN ×2 (09:23→18:38)
--- NOTE | 2017-02-05 09:30 | NUR ---
MD CAME TO SEE PT. AND DISCUSSED REGARDING PT WILL BE PLACED ON HOSPICE. PT BECAME AGITATED AND WANTED TO GO HOME. WILL CALL SONE AND LET HIM KNOW. MEDICATED PRN ATIVAN FOR ANXIETY.
--- NOTE | 2017-02-05 09:45 | NUR ---
CALLED HOME NUMBER [phone]. NO ANSWER ASKED THE PT IF THERE IS ANOTHER NUMBER TO REACH HER SON ARUN SHE GAVE THIS NUMBER [phone]. TRIED CALLING NO ANSWER. BUT WAS DIRECTED TO VOICE MAILBOX AND LEFT MESSAGE. PT CALM RIGHT NOW. COOPERATES. ASKED FOR A JELLO. NEEDS ATTENDED. AWAITING SON ARUN'S CALL BACK.
[2017-02-05 10:00] VITALS: BP 102/67
[2017-02-05] MEDS: amLODIPine 5 MG TAB PO SCH (10:00)
[2017-02-05] MEDS: CARVEDILOL 12.5 MG TAB PO SCH ×2 (10:00→21:10)
--- NOTE | 2017-02-05 10:30 | NUR ---
SON ALLAN CALLED. HE SAID THAT HE CAN'T COME TODAY TO SPEAK WITH PT, NOT UNTIL TOMORROW. PT ASLEEP AT THIS TIME. WILL LET PT KNOW WHEN SHE WAKES UP.
[2017-02-05 12:00] VITALS: BP 131/83
--- NOTE | 2017-02-05 13:20 | NUR ---
IV LINE ON PT'S LEFT FOREARM ACCIDENTALLY PULLED OUT BY PT. REINSERTED NEW IV LINE ON LEFT FA G22. PATENT, INTACT.
--- NOTE | 2017-02-05 14:17 | NUR ---
02 TITRATED TO 3L NC.
[2017-02-05 16:00] VITALS: BP 111/77
--- NOTE | 2017-02-05 18:40 | NUR ---
PT CALLED FINN LEMUS, ASKING HIM TO PICK HER UP THAT SHE IS GOING HOME TODAY. AND DOCTOR ALREADY PUT IN A DISCHARGE ORDER FOR HER. FINN LEMUS CALLED ME TO CLARIFY MADE AWARE THAT THERE IS NO DISCHARGE ORDER YET FROM MD. EXPLAINED TO PT THAT THERE IS NO DISCHARGE ORDER YET. AGITATION AND ANXIETY NOTED, PT KEPT ON INSISTING SHE IS GOING HOME TODAY AND THAT HER SON KNOWS AND WILL COME PICK HER UP AND ON HIS WAY. ATIVAN 1MG IVP GIVEN PRN FOR ANXIETY AND AGITATION. WILL CONTINUE TO REORIENT PT AND WILL MONITOR.
--- NOTE | 2017-02-05 19:45 | NUR ---
PT KEPT CLEAN DRY AND COMFORTABLE NEEDS ATTENDED. ENDORSED TO NEXT SHIFT ON STABLE CONDITION. MAINTAINED ON O2 AT 3LPM NC. DENIES ANY PAIN OR DISCOMFORT AT THIS TIME. FOR CONTINUITY OF CARE.
--- NOTE | 2017-02-05 19:46 | NUR ---
RECEIVED REPORT FROM AM NURSE. PT RESTING IN BED, AOX3, ABLE TO VERBALIZE NEEDS. PT IS CURRENTLY ON 4L NC, SPO2 99%, RR 19 UNLABORED AND SYMMETRICAL. SUPERVISOR SHAVING AND SPLITTING IN PLACE. PT DENIES CHEST PAIN, SOB OR S/S OF ACUTE DISTRESS. IV ACCESS ASYMPTOMATIC, PATENT AND INTACT. IVF INFUSING WELL. DISCUSSED AND REVIEWED PLAN OF CARE WITH PT. PT INSTRUCTED TO USE CALL LIGHT WHEN USING BEDSIDE COMMODE OR NEEDING ASSISTANCE. PT STATED "OKAY." SAFETY MEASURES ENSURED. CALL LIGHT WITHIN REACH. WILL CONTINUE TO MONITOR. Addendum: 02/06/17 at 0312 by Jeremy Lucio RN PT IS ON 3L NC
[2017-02-05 20:00] VITALS: BP 139/93
[2017-02-05] MEDS: ATORVASTATIN 20 MG TAB PO SCH (21:11)
[2017-02-06] VITALS: BP 112/73
--- NOTE | 2017-02-06 | NUR ---
PT IS RESTING COMFORTABLY. IVF INFUSING WELL. ALL NEEDS MET. SAFETY MEASURES ENSURED. CALL LIGHT WITHIN REACH. WILL CONTINUE TO MONITOR.
[2017-02-06] MEDS: ALBUTEROL SULFATE/IPRATROPIU 3 ML SOL IH SCH ×3 (01:08→13:51)
--- NOTE | 2017-02-06 03:12 | NUR ---
PT IS ON 3L NC Addendum: 02/06/17 at 0314 by Jeremy Lucio RN PT IS ON 3L NC, SPO2 98%, RR 16 UNLABORED. PT IS SLEEPING COMFORTABLY. IVF INFUSING WELL. ALL NEEDS MET. SAFETY MEASURES ENSURED. CALL LIGHT WITHIN REACH. WILL CONTINUE TO MONITOR.
[2017-02-06 04:00] VITALS: BP 107/78
[2017-02-06] MEDS: PIPER/TAZO 2.25GM/D5W PREMIX 50 ML IV SCH ×2 (05:56→12:01)
[2017-02-06] MEDS: LORazepam 1 MG TAB PO SCH ×2 (05:56→12:01)
--- NOTE | 2017-02-06 05:56 | NUR ---
ADMINISTERED DUE MEDICATIONS WITH EDUCATION. PT VERBALIZED UNDERSTANDING, TOLERATED MEDS WELL. IVPB INFUSING WELL. ALL NEEDS MET. SAFETY MEASURES ENSURED. CALL LIGHT WITHIN REACH.
--- NOTE | 2017-02-06 06:58 | NUR ---
ASLEEP EASILY AWAKENS RESPONSIVE TO LOAN CLOSER RESPIRONICS BIPAP VISION AT BEDSIDE
--- NOTE | 2017-02-06 07:15 | NUR ---
PT REFUSED TO GET PNA VACCINE OFFERED 3X, BEFORE HER DISCHARGE. PT STILL REFUSED. WITNESSED BY NIGHT NURSE J LUIS JACK.
--- NOTE | 2017-02-06 07:20 | NUR ---
ENDORSED PLAN OF CARE TO AM NURSE. CONDITION STABLE.
--- NOTE | 2017-02-06 07:23 | NUR ---
RECEIVED PT IN BED. ASLEEP. RT BY BEDSIDE GIVING BREATHING TREATMENT. AROUSABLE TO VOICE. DENIES ANY PAIN OR DISCOMFORT AT THIS TIME. POSITIVE BOWEL SOUNDS NOTED ON FOUR QUADRANTS. PT WITH BEDSIDE COMMODE. SAFETY PRECAUTION IN PLACE. CALL LIGHT WITHIN REACH.
[2017-02-06 08:00] VITALS: BP 125/92
[2017-02-06] MEDS: NACL 0.9% 1,000 ML IV SCH (08:31)
[2017-02-06] MEDS: LACTOBACILLUS RHAMNOSUS GG 1 EACH CAP PO SCH (08:32)
[2017-02-06] MEDS: VIT-B COMP/VIT-C/FOLIC ACID 1 TAB PO SCH (08:32)
[2017-02-06] MEDS: ASPIRIN 81 MG TAB.CHEW PO SCH (08:32)
[2017-02-06] MEDS: FUROSEMIDE 20 MG/2 ML VIAL IVP SCH (08:32)
[2017-02-06] MEDS: CALCIUM ACETATE 667 MG TAB PO SCH (08:32)
[2017-02-06 09:23] VITALS: BP 140/98
[2017-02-06] MEDS: CARVEDILOL 12.5 MG TAB PO SCH (09:25)
[2017-02-06] MEDS: amLODIPine 5 MG TAB PO SCH (09:25)
--- NOTE | 2017-02-06 10:00 | NUR ---
CALLED FINN LEMUS [phone] REGARDING MD PLAN TO DISCHARGE PT. LEFT MESSAGE VIA VOICE MAILBOX AWAITING CALL BACK.
--- NOTE | 2017-02-06 11:41 | NUR ---
ALLAN CALLED BACK MADE AWARE OF DOCTOR'S ORDER FOR DISCHARGE. HE SAID THAT HE'S GOING TO BE HERE AROUND 1:30 TO 2PM TO MARINE OPERATIONS COORDINATOR PT.
[2017-02-06] MEDS ORDERED: PHO667 PO (11:48)
[2017-02-06] MEDS ORDERED: LEVO750T2 PO (11:48)
[2017-02-06] MEDS ORDERED: CLIN300C2 PO (11:48)
[2017-02-06 12:00] VITALS: BP_SYST 125; BP_SYST 138; BP_DIAS 92
--- NOTE | 2017-02-06 12:35 | NUR ---
SS NOTE: I SPOKE WITH PT'S SON, NEFTALI. HE STATED THAT PT DOES HAVE PORTABLE OXYGEN AND HE WILL BRING IT WHEN HE PICKS UP PT. HE ALSO STATED THAT HE IS IN AGREEMENT WITH HAVING PT COME HOME WITH HIM ON HOSPICE. I SPOKE WITH CHERRY FROM [facility] ([phone]). SHE STATED THAT PT CAN GO HOME AND THEY WILL SEND A NURSE TO SEE PT AT HOME TO DO THE HOSPICE ADMISSION. SHE ALSO STATED THAT THEY ALREADY GAVE PT A NEBULIZER FOR HOME USE.
--- NOTE | 2017-02-06 12:46 | NUR ---
CALLED PHARMACY REGARDING STORED MEDICATIONS OF PT TO BE GIVEN TO PT UPON DISCHARGE. PHARMACY TO GET IT READY AND SEND IT TO [facility].
--- NOTE | 2017-02-06 13:51 | NUR ---
PATIENT PENDING DISCHARGE ON OR ABOUT 1400 HOURS SATURATION 99% ON SUPPLEMENTAL HUMIDIFIED OXYGEN AT 3 LPM VIA NC POST HHN THERAPY TITRATED0 FIO2 TO 2LPM ALFRED/RN NOTIFIED RESPIRONICS BIPAP VISION AT BEDSIDE
--- NOTE | 2017-02-06 14:10 | NUR ---
RAIZA/RN AT BEDSIDE WITNESSED SATURATION OF 95% ON SUPPLEMENTAL OXYGEN AT 2 LPM VIA NC
--- NOTE | 2017-02-06 14:10 | NUR ---
RAIZA/RN COVERING FOR MATTI/GUERO (LUNCH) INFORMED RAIZA WITH ACKNOWLEDGEMENT OF FIO2 TITRATION
--- NOTE | 2017-02-06 14:22 | NUR ---
SS NOTE: PER VICKI FROM [facility], LONG PT'S MEDICATIONS ARE INCLUDED IN PT'S D/C INSTRUCTIONS, THEY CAN OBTAIN PT'S MEDICATIONS AND DO NOT REQUIRE A WRITTEN PRESCRIPTION
--- NOTE | 2017-02-06 14:25 | NUR ---
DISCHARGE INSTRUCTIONS AND HEALTH TEACHINGS EXPLAINED AND PROVIDED TO PT. PT VERBALIZED UNDERSTANDING. PT SIGNED DISCHARGE PAPERS. PROVIDED PT WITH HOME MEDS THAT WERE KEPT AT THE HOSPITAL PHARMACY. TELEMONITOR REMOVED. IV CANNULA REMOVED AND INTACT. NO SOB NOTED PT DENIES ANY PAIN OR DISCOMFORT AT THIS TIME. FINN HEARN CAME TO SAWMILL MANAGER PT. PT HOOKED ON THEIR PORTABLE OXYGEN PROVIDED BY FAMILY ATTACHED TO WHEELCHAIR AT 3LPM NC. DR. KERN SPOKE WITH FINN DEUTSCHJEANINE. WHEELED PT OUT GOING TO THE HOSPITAL PARKING LOT ON STABLE CONDITION TO THEIR PRIVATE OWNED VEHICLE.
== END 2017-02-06 14:30 | disposition hospice, home (50) | DRG 720 ==
LOC: MED 21:57 → MTU 02-02 00:53
PROVIDERS: ADMIT Family Medicine; ATTEND Family Medicine
PROC: 5A09357 Assistance with Respiratory Ventilation, Less than 24 Consecutive Hours, Continuous Positive Airway Pressure (ICD-10-PCS; principal; 2017-02-02)
DX: A41.9 Sepsis, unspecified organism (principal); N17.0 Acute kidney failure with tubular necrosis; J96.21 Acute and chronic respiratory failure with hypoxia; J69.0 Pneumonitis due to inhalation of food and vomit; E43 Unspecified severe protein-calorie malnutrition; G92 Toxic encephalopathy; I50.43 Acute on chronic combined systolic (congestive) and diastolic (congestive) heart failure; N18.6 End stage renal disease; I27.2 Other secondary pulmonary hypertension; T40.5X1A Poisoning by cocaine, accidental (unintentional), initial encounter; J96.22 Acute and chronic respiratory failure with hypercapnia; F10.10 Alcohol abuse, uncomplicated; E83.39 Other disorders of phosphorus metabolism; F14.10 Cocaine abuse, uncomplicated; E83.51 Hypocalcemia; Y90.0 Blood alcohol level of less than 20 mg/100 ml; F19.10 Other psychoactive substance abuse, uncomplicated; Z53.29 Procedure and treatment not carried out because of patient's decision for other reasons; K43.9 Ventral hernia without obstruction or gangrene; E83.42 Hypomagnesemia; E87.6 Hypokalemia; J44.9 Chronic obstructive pulmonary disease, unspecified; I13.2 Hypertensive heart and chronic kidney disease with heart failure and with stage 5 chronic kidney disease, or end stage renal disease; F43.23 Adjustment disorder with mixed anxiety and depressed mood; J90 Pleural effusion, not elsewhere classified; T42.4X1A Poisoning by benzodiazepines, accidental (unintentional), initial encounter; D63.8 Anemia in other chronic diseases classified elsewhere; Y92.89 Other specified places as the place of occurrence of the external cause; Z72.89 Other problems related to lifestyle; Z68.21 Body mass index [BMI] 21.0-21.9, adult; Z99.81 Dependence on supplemental oxygen
CPT/HCPCS: 36415; 36600; 71010; 76604; 76700; 80048; 80053; 80305; 81001; 82140; 82150; 82803; 83036; 83605; 83690; 83735; 83880; 84100; 84439; 84443; 84484; 85025; 85610; 85730; 87040; 87081; 87086; 93005; 93971; 94640; 94660; 96361; 96365; 97116; 97530; 99285; G0482; J1940; J2060; J2270; J2543; J3475; J7030; J7060; J7620; Q0092

== ENCOUNTER 2020-05-09 14:20 | Emergency (ER) | payer MEDICARE, MEDICAID ==
[~2020-05-09] VITALS: Ht 162.6 cm; Wt 50.8 kg
[~2020-05-09 14:20] MED LIST: ALBU3SOL83 IH; AMLO-272 PO; ASPI-1884 PO; ATOR40TA PO; CALC667C12 PO; CARV25TA PO; CLIN300C2 PO; FURO20TA8 PO; LEVO750T2 PO; LORA-476 PO; TEMA15CA11 PO; [UNRECOGNIZED DRUG - CODE] PO
--- NOTE | 2020-05-09 14:21 | NUR ---
BIBA AND PLACED IN BED 10
[2020-05-09 14:25] VITALS: BP 165/115
--- NOTE | 2020-05-09 14:35 | NUR ---
PT BIBA FROM [facility] FOR SEVERE SOB. PT STATES SHE HAS BEEN ON OXYGEN FOR THE PAST TWO YEARS DUE TO COPD BUT HER SON STOPPED THE OXYGEN FOR 5 DAYS DUE TO HIGH BILL. PT PRESENTS WITHOUT ACCESSORY MUSCLE USE, RESPIRATROY DISTRESS, DIAPHORESIS. DENIES COUGH, FEVER, N/V/D, CP, OR SICK CONTACT. SUPRACLAVICULAR HEMODIALYSIS SHUNT IS IN PLACE. PT STATES SHE DOES NOT DO DIALYSIS ANYMORE. AAOX4 WITH EVEN AND STEADY GAIT; LUNGS CLEAR BL; HR EVEN AND REGULAR; PT DENIES ANY FEVER, CP, SOB, OR COUGH AT THIS TIME; PATIENT STATES PAIN OF 0/10 AT THIS TIME; VSS; PATIENT POSITIONED FOR COMFORT; HOB ELEVATED; BEDRAILS UP X2; BED DOWN. ER MD MADE AWARE OF PT STATUS.
--- NOTE | 2020-05-09 14:57 | NUR ---
LAB IS AT BEDSIDE.
[2020-05-09 15:05] LABS: BASOPHILS % (AUTO) 0.7 % (0.0-2.0); EOSINOPHILS # (AUTO) 0.1 K/uL (0-0.4); HEMATOCRIT 36.2 % (36-48); HEMOGLOBIN 11.2 g/dL (12.0-16.0); LYMPHOCYTES # (AUTO) 1.3 K/uL (2.5-16.5); LYMPHOCYTES % (AUTO) 24.7 % (20.5-51.1); MEAN CORPUSCULAR HEMOGLOBIN 28 pg (27-31); MEAN CORPUSCULAR HGB CONC 31 g/dL (33-37); MEAN CORPUSCULAR VOLUME 89.5 fL (80-94); MONOCYTES # (AUTO) 0.1 K/uL (0.8-1.0); MONOCYTES % (AUTO) 2.7 % (1.7-9.3); NEUTROPHILS # (AUTO) 3.8 K/uL (1.8-7.7); NEUTROPHILS % (AUTO) 69.9 % (42.2-75.2); PLATELET COUNT (AUTO) 133 K/uL (140-450); RED BLOOD CELL COUNT(AUTO) 4.04 MIL/uL (4.20-5.40); RED CELL DISTRIBUTION WIDTH 14.2 % (11.6-13.7); WHITE BLOOD COUNT (AUTO) 5.4 K/uL (4.8-10.8)
[2020-05-09 15:24] LABS: ALBUMIN 1.7 g/dL (3.4-5.0); ANION GAP 17.2 (8-16); CARBON DIOXIDE 15.1 mmol/L (21-32); CREATININE 2.3 mg/dL (0.6-1.3); TOTAL BILIRUBIN 0.3 mg/dL (0.0-1.0)
[2020-05-09 15:38] LABS: POTASSIUM 2.3 mmol/L (3.5-5.1)
[2020-05-09] MEDS ORDERED: POTASSIUM CHLORIDE 10 MEQ TABER PO ONE (15:45)
[2020-05-09] MEDS ORDERED: NACL 0.9% 1,000 ML IV ONE (15:50)
--- NOTE | 2020-05-09 16:20 | NUR ---
XRAY IS AT BEDSIDE.
--- NOTE | 2020-05-09 17:31 | NUR ---
PT IS RESTING IN THE BED WITH VSS. WILL CONTINUE MINITOR PT'S VITAL SIGNS.
--- NOTE | 2020-05-09 17:48 | NUR ---
PT'S BP 183/125 MMHG, HR 93. DR. DUMONT MADE AWARE.
[2020-05-09] MEDS ORDERED: CLONIDINE HYDROCHLORIDE 0.1 MG TAB PO ONE ×2 (17:50→18:15)
--- NOTE | 2020-05-09 18:16 | NUR ---
CLONIDINE 0.1 MG PO WAS GIVEN AT 17:50. RECHECK BP 184/[address] DUMONT MADE AWARE. 2ND DOSE OF CLONIDINE 0.1MG IS ORDERED BY DR. DUMONT. PT REFUSED TO TAKE THE MED AND STATES: "I GOTTA GO, MY SON IS WAITING FOR ME." DR. DUMONT MADE AWARE AND STATED IT IS FINE TO LET HER GO.
[2020-05-09 18:17] VITALS: BP 184/134
--- NOTE | 2020-05-09 18:17 | NUR ---
Patient discharged with v/s stable. Written and verbal after care instructions given and explained. Patient alert, oriented and verbalized understanding of instructions. Ambulatory with steady gait. All questions addressed prior to discharge. ID band removed. Patient advised to follow up with PMD. Rx of Clonidine, Prednisone, and Albuterol inheler given. Patient educated on indication of medication including possible reaction and side effects. Opportunity to ask questions provided and answered.
== END 2020-05-09 18:16 | disposition home or self-care (01) ==
LOC: MED 14:20
DX: J44.9 Chronic obstructive pulmonary disease, unspecified (principal); E87.6 Hypokalemia; E87.0 Hyperosmolality and hypernatremia; F17.210 Nicotine dependence, cigarettes, uncomplicated; I10 Essential (primary) hypertension; N28.9 Disorder of kidney and ureter, unspecified; Z79.899 Other long term (current) drug therapy
CPT/HCPCS: 36415; 71045; 80053; 83880; 84484; 85025; 93005; 96360; 99285; Q0092